=== PATIENT | female | born 1985 | race African-American/Black ===

== ENCOUNTER 2022-03-13 00:09 | Emergency (ER) | payer MEDICAID ==
[~2022-03-13] VITALS: Ht 170.2 cm; Wt 82.0 kg
[2022-03-13 00:56] VITALS: BP 171/121
== END 2022-03-13 03:58 | disposition home or self-care (01) ==
LOC: ER 00:09
DX: S50.861A Insect bite (nonvenomous) of right forearm, initial encounter (principal); S50.862A Insect bite (nonvenomous) of left forearm, initial encounter; S40.261A Insect bite (nonvenomous) of right shoulder, initial encounter; I10 Essential (primary) hypertension; W57.XXXA Bitten or stung by nonvenomous insect and other nonvenomous arthropods, initial encounter; Y93.89 Activity, other specified; Y92.89 Other specified places as the place of occurrence of the external cause; Y99.8 Other external cause status